=== PATIENT | male | born 1960 | race Caucasian/White ===

== ENCOUNTER → 2023-10-22 06:56 | Outpatient (REF) | payer BC, SELFPAY ==
[2023-10-22 08:26] LABS: ALT (SGPT) 24 U/L (0-50); AST (SGOT) 21 U/L (17-59); Albumin 4.2 g/dl (3.5-5.0); Alkaline Phosphatase 88 U/L (38-126); Blood Urea Nitrogen 17 mg/dl (9-20); Calcium 9.2 mg/dl (8.4-10.2); Carbon Dioxide 28 mmol/L (22-30); Chloride 101 mmol/L (98-107); Glucose 148 mg/dl (70-99); HDL Cholesterol 61 mg/dl; LDL Cholesterol, Calculated 89 mg/dl; Sodium 137 mmol/L (135-145); Total Bilirubin 1.2 mg/dl (0.2-1.3); Total Cholesterol 185 mg/dl (50-199); Total Protein 7.1 g/dl (6.3-8.2); Triglyceride 175 mg/dl (10-149); Very Low Density Lipoprotein 35 mg/dl (0-30); eGFR > 60.00
[2023-10-22 08:38] LABS: Potassium 4.2 mmol/L (3.5-5.1)
[2023-10-22 08:49] LABS: Microalbumin, Random Urine 1.8 mg/dl (0.6-1.7); Microalbumin/creatinine Ratio 8.2 mg/g
[2023-10-22 10:09] LABS: Glycohemoglobin (HgbA1c) 7.6 % (4.0-5.6)
== END ==
LOC: REG 06:56
PROVIDERS: ATTENDING PHYSICIAN Internal Medicine
DX: E11.42 Type 2 diabetes mellitus with diabetic polyneuropathy (principal); E78.2 Mixed hyperlipidemia
CPT/HCPCS: 36415; 80053; 80061; 82043; 82570; 83036

== ENCOUNTER → 2023-11-07 07:54 | Outpatient (REF) | payer BC, SELFPAY ==
--- NOTE | 2023-11-07 08:29 | PN.DIAED06 ---
Meal Plans - Regular
- Meal Plan
Diabetic Meal Plan Name: 2000 calories
Breakfast - Total Carbohydrate (grams): 45
Breakfast - Starch Carbohydrate: 0
Breakfast - Fruit Carbohydrate: 0
Breakfast - Milk Carbohydrate: 0
Breakfast - Nonstarchy Vegetables: Yes
Breakfast - Meat/Protein: 1
Breakfast - Fat: 2
Morning Snack - Total Carbohydrate (grams): 30
Morning Snack - Starch Carbohydrate: 0
Morning Snack - Fruit Carbohydrate: 0
Morning Snack - Milk Carbohydrate: 0
Morning Snack - Nonstarchy Vegetables: Yes
Morning Snack - Meat/Protein: 0.5
Morning Snack - Fat: 0
Lunch - Total Carbohydrate (grams): 45
Lunch - Starch Carbohydrate: 0
Lunch - Fruit Carbohydrate: 0
Lunch - Milk Carbohydrate: 0
Lunch - Nonstarchy Vegetables: Yes
Lunch - Meat/Protein: 3
Lunch - Fat: 1
Afternoon Snack - Total Carbohydrate (grams): 30
Afternoon Snack - Starch Carbohydrate: 0
Afternoon Snack - Fruit Carbohydrate: 0
Afternoon Snack - Milk Carbohydrate: 0
Afternoon Snack - Nonstarchy Vegetables: Yes
Afternoon Snack - Meat/Protein: 0.5
Afternoon Snack - Fat: 0
Dinner - Total Carbohydrate (grams): 45
Dinner - Starch Carbohydrate: 0
Dinner - Fruit Carbohydrate: 0
Dinner - Milk Carbohydrate: 0
Dinner - Nonstarchy Vegetables: Yes
Dinner - Meat/Protein: 4
Dinner - Fat: 2
Evening Snack - Total Carbohydrate (grams): 15
Evening Snack - Starch Carbohydrate: 0
Evening Snack - Fruit Carbohydrate: 0
Evening Snack - Milk Carbohydrate: 0
Evening Snack - Nonstarchy Vegetables: Yes
Evening Snack - Meat/Protein: 0
Evening Snack - Fat: 0
--- NOTE | 2023-11-07 09:14 | PN.DIAED02 ---
Referral
Referred For: Diabetes Self-Management Training
PHI Release Authorization Form Signed: Yes
Care Plan
- Plan of Care
Plan of Care:
Met with Howard for a 'holdover' appointment. A1C 11% (10/2023), up from 7/2% (06/2023). Taking Metformin 1000 mg with breakfast and dinner. Provided with and instructions given on the Contour Next EZ glucometer. Aware of proper testing technique, sites,
pattern and expected results. Good return demonstration with result of 162 mg/dl 2 hr post breakfast of cereal w/silk milk. 6', !88#. Reviewed macronutrients and role each plays in glucose, Discussed reading food labels and to initially measure some
foods for the correct portion sizes. Provided w/ 2000 forrest ADA meal plan, ok to reduce morning and afternoon snack to 15 gm CHO. Handout on snack options given along with handout on testing pattern and expected results. He is aware to add protein to
each meal and snack, which he was lacking when discussing his eating habits. He participates in exercise at [employer] where he does both aerobic and anaerobic exercises 2x/day. Encouraged to be active on the other days, states he does get up
and walk at work. Encouraged and handout on outpt DSME classes given. Phone number provided for follow up questions.
== END ==
LOC: DES 07:54
PROVIDERS: ATTENDING PHYSICIAN Internal Medicine
DX: E11.65 Type 2 diabetes mellitus with hyperglycemia (principal)
CPT/HCPCS: 99078

== ENCOUNTER → 2024-03-04 06:36 | Outpatient (REF) | payer BC, SELFPAY ==
[2024-03-04 08:11] LABS: Microalbumin, Random Urine 0.6 mg/dl (0.6-1.7)
[2024-03-04 08:12] LABS: ALT (SGPT) 45 U/L (0-50); AST (SGOT) 38 U/L (17-59); Albumin 4.4 g/dl (3.5-5.0); Alkaline Phosphatase 75 U/L (38-126); Blood Urea Nitrogen 22 mg/dl (9-20); Calcium 9.6 mg/dl (8.4-10.2); Carbon Dioxide 26 mmol/L (22-30); Chloride 99 mmol/L (98-107); Glucose 175 mg/dl (70-99); HDL Cholesterol 58 mg/dl; LDL Cholesterol, Calculated 142 mg/dl; Potassium 4.8 mmol/L (3.5-5.1); Sodium 138 mmol/L (135-145); Total Bilirubin 0.8 mg/dl (0.2-1.3); Total Cholesterol 242 mg/dl (50-199); Total Protein 7.3 g/dl (6.3-8.2); Triglyceride 214 mg/dl (10-149); Very Low Density Lipoprotein 42 mg/dl (0-30); eGFR > 60.00
[2024-03-04 08:16] LABS: Microalbumin/creatinine Ratio 4.6 mg/g
--- NOTE | 2024-03-04 08:53 | PN.DIAED04 ---
Education Record
- Education Record
Class Attended: Other (Pre-Registration for DSME Classes)
DSME Class Series Code: [id number]
Instructor: Nurse Practitioner (IVAN Ding)
Class Length (mins): 30
Pre-Program Knowledge: No knowledge
Pre-Test Score (%): 50
Goals
- Goal 1
Being Active: Exercise 30 minutes-5 times per week, Exercise more often
Goals To Be Evaluated: Exercise 30 mins-5x/week. Exercise more often
- Goal 2
Healthy Eating: Make better food choices, Follow meal plan, Reduce portion sizes
Goals To Be Evaluated: Make better food choices. Follow meal plan. Reduce portion sizes
- Goal 3
Monitoring: Follow monitoring schedule, Monitor more often
Goals To Be Evaluated: Follow monitoring times. Monitor more often
[2024-03-04 09:25] LABS: Glycohemoglobin (HgbA1c) 7.6 % (4.0-5.6)
== END ==
LOC: REG 06:36
PROVIDERS: ATTENDING PHYSICIAN Internal Medicine
DX: E11.42 Type 2 diabetes mellitus with diabetic polyneuropathy (principal); E78.2 Mixed hyperlipidemia
CPT/HCPCS: 36415; 80053; 80061; 82043; 82570; 83036

== ENCOUNTER → 2024-03-16 18:00 | Outpatient (REF) | payer BC, SELFPAY ==
--- NOTE | 2024-03-04 07:23 | PN.DIAED02 ---
Referral
DSME Class Series Code: [id number]
Referred For: Diabetes Self-Management Training, Medical Nutrition Therapy, Self-Blood Glucose Monitoring, Long-Term Complication Instruction, Accute Complication Instruction, Care Coordination, Disease Management
PHI Release Authorization Form Signed: Yes
Patient Problems:
Current Active Problems
Problem Status Onset
Type 2 diabetes mellitus without complications ~12/10/19
Demographic
(1) Type 2 diabetes mellitus without complications
Status: Chronic Onset Date: ~12/10/19
Qualifiers:
Diabetes mellitus exterminator termite insulin use: without exterminator termite use Qualified Code(s): E11.9 - Type 2 diabetes mellitus without complications
Code(s): E11.9 - Type 2 diabetes mellitus without complications
Patient's primary language-: Emirati
Education: College degree
Occupation: Professional
Hours Worked/Week: > 40
Shift: Day
- Social
Primary Support Person: Self
Primary Care Takers: Self
Living Arrangements: Self
- Learning Methods
Preferred Method: Hands-on demonstration
Barriers to Learning: None
Glycemic Control
- Blood Glucose Monitoring Assessment
Monitor Brands: Other (Contour Next)
Frequency: occasionally
Time: fasting
Patient uses Alternate Site Testing: No
Patient instructed on Use and Limitation: No
- Ketone Monitoring Assessment
Patient monitoring ketone: No
- Hyperglycemia Assessment
Experiences Hyperglycemia: No
- Hypoglycemia Assessment
Patient carries glucose source: No
- Hemoglobin A1c
Date: 10/22/23
A1C Percentage (%): 7.6
Medical History of Diabetes
Family Diabetes History: Father, Grandmother
Previous Diabetes Education: No
Previous visit with Dietitian: No
Complications/Comorbidity/Specialist: Glaucoma, Hypertension, Hyperlipidemia, Neuropathy, Other / symptoms (Sexual dysfunction)
Measures
- Anthropometrics
Height: 6 ft
Actual Weight: 86.035 kg
- Blood Pressure / Pulse
Blood pressure: 125/83
Pulse: 86
- Diabetes Management
Medical Management for Diabetes: Complete physical exam (09/01/2023), Dental exam (08/20/2023), Dilated eye exam (08/09/2023)
Self-Care
- Tobacco Usage
Do you now, or have you ever smoked?: Never smoked
Smoking Cessation Referral and/or Information provided: No
- Alcohol & Drugs Usage
Drinks Alcohol: Yes
Amount/day: < 1 drink per day
Uses Recreational Drugs: No
- Meals & Dining
Meals & Dining: Patient skips meals: No, Food Intolerance / Allergy: Yes (peanuts ), Cultural / Mormon Dietary Needs: No
Primary Food Beer Maker: Self
Primary Gymnastic Coach: Self
Dining Out Frequency: 1-3x per week
- Physical Activity
Physical Limitation: No
Activity Types: Aerobics, Strength training
Duration: 41-50 minutes
Frequency: 1-2x per week
Intensity: Difficult
- Self Foot-Care
Foot Problems: None
Performs Self Foot-Exam: Yes
Frequency: Daily
- Patient-Self Assessment
Diabetes Knowledge: Fair
Feelings About Diabetes: Anger
General Health: Good
Importance of Health: Extremely
Stress Level: Medium
Diabetes Interferes With:: Sexual relations
Barriers to Diabetes Management: Nothing
Depression Survey Score: 2
- Diabetes Identification
Carries Diabetes Identification: No
Diabetes Identification Information Provided: No
Care Plan
- Education Needs
Patient Education Needs: Diabetes disease process, Chronic complications, Acute complications, Monitoring, Physical activity, Psychosocial Adjustment, Nutritional management, Goal setting & problem solving
Recommended Diabetes Training Program based on assessment: Outpatient Diabetes Education Program
- Plan of Care
Plan of Care:
Met with Ld today for registration and initiation of Diabetes Self management. Pt was recommended by his PCP due to hx of T2DM with an A1C of 7.6%.
Patient is currently taking Metformin 1000mg BID. Reports states that he has a glucose monitor- Contour Next but has been very lazy with monitoring his blood sugars. Reviewed the testing pattern and set a schedule for him to monitor blood sugars
2x/day- Fasting and 2 hrs after dinner.
Pt was counseled with emphasis on the importance of monitoring his blood sugars, need to adhere to a healthy life style including healthy eating, engaging in Physical activity and taking his medications. He participates in exercise at [employer]
where he does both aerobic and anaerobic exercises 2x/day. Encouraged Ld to increase his physical activity to 45 minutes/3-4 days a week.
--- NOTE | 2024-03-17 16:35 | PN.DIAED04 ---
Education Record
- Education Record
Class Attended: Other (Pre-reg for DSME classes)
Instructor: Nurse Practitioner (IVAN Ding)
Pre-Program Knowledge: No knowledge
Pre-Test Score (%): 50
Goals
- Goal 1
Being Active: Exercise 30 minutes-5 times per week, Exercise more often
Goals To Be Evaluated: Exercise 30 mins-5x/week. Exercise more often
- Goal 2
Healthy Eating: Make better food choices, Follow meal plan
Goals To Be Evaluated: Make better food choices. Follow meal plan
- Goal 3
Monitoring: Follow monitoring schedule, Monitor more often
Goals To Be Evaluated: Follow monitoring times. Monitor more often
== END ==
LOC: DES 18:00
PROVIDERS: ATTENDING PHYSICIAN Internal Medicine
DX: E11.9 Type 2 diabetes mellitus without complications (principal)
CPT/HCPCS: 99078

== ENCOUNTER → 2024-03-23 18:00 | Outpatient (REF) | payer BC, SELFPAY ==
--- NOTE | 2024-03-31 09:38 | PN.DIAED04 ---
Education Record
- Education Record
Class Attended: Class 2
DSME Class Series Code: [id number]
Instructor: Registered Dietitian (Migdalia Santana, RD, LDN, CDE)
Class Curriculum:
Outpatient Diabetes Education Program:
Class 2 (120 minutes)
Incorporate nutritional management into lifestyle
Understanding nutritional value
Understanding carbohydrate counting
Class Length (mins): 120
Post-Class 2 & 3 Test Score (%): 75
== END ==
LOC: DES 18:00
PROVIDERS: ATTENDING PHYSICIAN Internal Medicine
DX: E11.9 Type 2 diabetes mellitus without complications (principal)
CPT/HCPCS: 99078

== ENCOUNTER → 2024-03-30 18:00 | Outpatient (REF) | payer BC, SELFPAY ==
--- NOTE | 2024-03-31 09:40 | PN.DIAED04 ---
Education Record
- Education Record
Class Attended: Class 3
DSME Class Series Code: [id number]
Instructor: Registered Dietitian (Migdalia Santana, RD, LDN, CDE)
Class Curriculum:
Outpatient Diabetes Education Program:
Class 3 (120 minutes)
Incorporate nutritional management into lifestyle
Class Length (mins): 120
Post-Class 2 & 3 Test Score (%): 75
== END ==
LOC: DES 18:00
PROVIDERS: ATTENDING PHYSICIAN Internal Medicine
DX: E11.9 Type 2 diabetes mellitus without complications (principal)
CPT/HCPCS: 99078

== ENCOUNTER → 2024-04-06 08:10 | Outpatient (REF) | payer BC, SELFPAY ==
--- NOTE | 2024-04-10 08:34 | PN.DIAED04 ---
Education Record
- Education Record
Class Attended: Class 4
DSME Class Series Code: [id number]
Instructor: Nurse Practitioner (IVAN Ding)
Class Length (mins): 120
Post-Class 4 Test Score (%): 80
== END ==
LOC: DES 08:10
PROVIDERS: ATTENDING PHYSICIAN Internal Medicine
DX: E11.9 Type 2 diabetes mellitus without complications (principal)
CPT/HCPCS: 99078

== ENCOUNTER → 2024-04-13 12:45 | Outpatient (REF) | payer BC, SELFPAY | LOC: DES 12:45 | PROVIDERS: ATTENDING PHYSICIAN Internal Medicine | DX: E11.9 Type 2 diabetes mellitus without complications (principal) | CPT/HCPCS: 99078 ==

== ENCOUNTER → 2024-07-08 09:23 | Outpatient (REF) | payer BC, SELFPAY ==
[2024-07-08 11:38] LABS: Glycohemoglobin (HgbA1c) 7.7 % (4.0-5.6)
[2024-07-08 12:11] LABS: ALT (SGPT) 35 U/L (0-50); AST (SGOT) 28 U/L (17-59); Albumin 4.5 g/dl (3.5-5.0); Alkaline Phosphatase 75 U/L (38-126); Blood Urea Nitrogen 14 mg/dl (9-20); Calcium 9.2 mg/dl (8.4-10.2); Carbon Dioxide 26 mmol/L (22-30); Chloride 99 mmol/L (98-107); Glucose 136 mg/dl (70-99); HDL Cholesterol 60 mg/dl; LDL Cholesterol, Calculated 107 mg/dl; Potassium 4.2 mmol/L (3.5-5.1); Sodium 135 mmol/L (135-145); Total Bilirubin 1.1 mg/dl (0.2-1.3); Total Cholesterol 192 mg/dl (50-199); Total Protein 7.1 g/dl (6.3-8.2); Triglyceride 129 mg/dl (10-149); Very Low Density Lipoprotein 25 mg/dl (0-30); eGFR > 60.00
[2024-07-08 14:47] LABS: Microalbumin, Random Urine 0.7 mg/dl (0.6-1.7)
[2024-07-08 14:49] LABS: Microalbumin/creatinine Ratio 5.2 mg/g
[2024-07-09 20:57] LABS: PSA Total 8.2 ng/mL (0.0-4.0)
== END ==
LOC: REG 09:23
PROVIDERS: ATTENDING PHYSICIAN Internal Medicine
DX: E11.42 Type 2 diabetes mellitus with diabetic polyneuropathy (principal); E78.2 Mixed hyperlipidemia; R97.20 Elevated prostate specific antigen [PSA]
CPT/HCPCS: 36415; 80053; 80061; 82043; 82570; 83036; 84153; 84154